=== PATIENT | female | born 1950 | race African-American/Black ===

== ENCOUNTER 2023-05-05 17:36 | Emergency (ER) | payer MEDICARE, OTHER ==
[~2023-05-05] VITALS: Ht 167.6 cm; Wt 79.5 kg
[~2023-05-05 17:36] MED LIST: HYDR-4455 PO
[2023-05-05 17:39] VITALS: BP 118/62; PULSE 68; RESP 16; TEMP 97.8
== END 2023-05-05 22:29 | disposition home or self-care (01) ==
LOC: EMS 17:37
DX: M54.40 Lumbago with sciatica, unspecified side (principal); F20.9 Schizophrenia, unspecified; F32.A Depression, unspecified; F12.90 Cannabis use, unspecified, uncomplicated; Z90.710 Acquired absence of both cervix and uterus; Z88.5 Allergy status to narcotic agent
CPT/HCPCS: 72100; 99283